=== PATIENT | female | born 1940 | race Caucasian/White ===

== ENCOUNTER → 2016-08-20 | Outpatient (CLI) | payer MEDICARE, BC ==
[~2016-08-20] MED LIST: ASPI1TAB69 PO; ASPI81 PO; CHOL1CAP6 PO; CO Q60CA PO; CO Q60CA2 PO; EZET10 PO; GABA300 PO; GLIM4 PO; GLIM4TAB PO; JANU100T PO; MAGN500T4 PO; MAXZ PO; METF1000 PO; PENT400T PO; TREN400T PO; VANC250C2 PO; VASO10TA8 PO; VITA1000 PO; ZETI10TA5 PO
[2016-08-20 12:32] LABS: HEMATOCRIT 36.4 % (35.0-46.0); MEAN CELL VOLUME 85.4 FL (80.0-100.0); MEAN CORPUSCULAR HEMOGLOBIN 27.6 PG (27.0-34.0); MEAN CORPUSCULAR HGB CONC 32.3 % (32.0-36.0); PLATELET COUNT 442 TH/MM3 (150-450); RED BLOOD COUNT 4.26 MIL/MM3 (4.00-5.30); RED CELL DISTRIBUTION WIDTH 17.7 % (11.6-17.2); REVIEW FLAG FINAL; WHITE BLOOD COUNT 19.4 TH/MM3 (4.0-11.0)
[2016-08-20 12:42] LABS: BLOOD, URINE NEG (NEG); GLUCOSE,URINE NEG (NEG); HYALINE CAST, URINE 1 /lpf (RARE); KETONE, URINE NEG (NEG); NITRITE,URINE NEG (NEG); PH, URINE 6.5 (5.0-8.5); SQUAMOUS EPITHELIAL CELL URINE 1 /hpf (0-5); URINE COLOR YELLOW (YELLW/STRAW)
[2016-08-20 12:54] LABS: ANION GAP 7 MEQ/L (5-15); AST (GOT) 27 U/L (15-37); BICARBONATE 27.8 MEQ/L (21.0-32.0); BLOOD UREA NITROGEN 37 MG/DL (7-18); CHLORIDE 103 MEQ/L (98-107); GLOMERULAR FILTRATION RATE 43 ML/MIN (>89); GLUCOSE,FASTING 116 MG/DL (74-99); POTASSIUM 4.8 MEQ/L (3.5-5.1); SODIUM (NA) 138 MEQ/L (136-145)
[2016-08-20 12:58] LABS: ALKALINE PHOSPHATASE 78 U/L (45-117); ALT (GPT) 26 U/L (10-53); TOTAL BILIRUBIN ADULT 0.4 MG/DL (0.2-1.0)
--- NOTE | 2016-08-20 13:16 | RADRPT ---
EXAM DATE/TIME: 08/20/2016 12:42 [place] COMPARISON: No previous studies available for comparison. INDICATIONS : Evaluate for pneumonia, pneumothorax and communicable diseases. Pre-op biopsy on uterus. MEDICAL HISTORY : Chronic obstructive pulmonary disease. SURGICAL HISTORY : None. ENCOUNTER: Initial ACUITY: 1 day PAIN SCORE: 0/10 LOCATION: Bilateral chest FINDINGS: PA and lateral views of the chest demonstrate the lungs to be symmetrically aerated without evidence of mass, infiltrate or effusion. The cardiomediastinal contours are unremarkable. Osseous structure s are intact. CONCLUSION: No acute disease. Johan Fung MD on August 20, 2016 at 13:14 Board Certified Radiologist. This report was verified electronically.
--- NOTE | 2016-08-21 23:40 | EKG ---
Date Performed: 08/20/2016 Time Performed: 11:54:00 PTAGE: 76 years EKG: Sinus rhythm WITH OCCASIONAL VENTRICULAR PREMATURE COMPLEXES BORDERLINE ECG NO PREVIOUS TRACING DOCTOR: Leticia Suarez Interpretating Date/Time 08/21/2016 23:38:09
== END ==
LOC: CPRE 11:29
PROVIDERS: ATTEND Obstetrics & Gynecology
DX: Z01.810 Encounter for preprocedural cardiovascular examination (principal); Z01.811 Encounter for preprocedural respiratory examination; Z01.812 Encounter for preprocedural laboratory examination; N95.0 Postmenopausal bleeding; R94.31 Abnormal electrocardiogram [ECG] [EKG]
CPT/HCPCS: 36415; 71020; 80053; 81001; 85027; 93005

== ENCOUNTER → 2016-08-26 | Day surgery (SDC) | payer MEDICARE, BC ==
[~2016-08-26] VITALS: Ht 170.2 cm; Wt 113.6 kg
[~2016-08-26] MED LIST changes: +*morphine SULFATE 8 MG/ML PERIprocedure ONLY ONE; +DICLOFENAC SODIUM 37.5 MG/ML VIAL IV PUSH ONE; +DO NOT ADM ANY ANTICOAGULANT DRUGS XX PRN; +MIDAZOLAM HCL 2 MG/2 ML VIAL ONE; +ONDANSETRON HCL 4 MG/2 ML VIAL IV PUSH ONE; +OXYTOCIN 10 UNIT/ML AMP ONE; +PROPOFOL 200 MG/20 ML AMP IV ONE; +SILVER NITR/POTASSIUM NITRATE APPLICATORS ONE; +oxyCODONE/ACETAMINOPHEN 5 MG/325 MG TAB PO PRN
[2016-08-26 11:08] VITALS: BP 174/71; PULSE 100; RESP 16; TEMP 97.8; O2SAT 97
[2016-08-26 16:30] VITALS: BP 133/67; PULSE 90; RESP 17; TEMP 97.8; O2SAT 96
--- NOTE | 2016-08-29 18:10 | MP ---
cc: Valorie BILLY MD DATE OF SURGERY: 08/26/2016. PREOPERATIVE DIAGNOSIS: Thickened endometrium on ultrasound and CT scan. POSTOPERATIVE DIAGNOSIS: 1. Thickened endometrium on ultrasound and CT scan. 2. Large endometrial polyp. 3. Small submucous myoma. OPERATIVE PROCEDURE PERFORMED: 1. Examination under anesthesia. 2. Dilation and curettage of the uterus with the MyoSure Device. 3. Polypectomy. 4. Myomectomy. SURGEON: Valorie Billy MD. ANESTHESIA: General. FINDINGS: On examination under anesthesia, the vagina was atrophic without lesions and quite tight. The cervix was small and nulliparous. The uterus and adnexa were not palpable secondary to adipose tissue. No masses were felt. The hysteroscopic exam revealed a large fundal polyp extending down to the internal cervical os. It looked totally benign. On the anterior area of the endometrium, there was a small 5 mm x 5 mm fibroid which was submucous and was removed. The uterus sounded to 8 cm. The remainder of the endocervix and the endometrium looked normal and not suspicious for any malignancy. COMPLICATIONS: None. COUNTS: Correct. ESTIMATED BLOOD LOSS: Minimal. DISPOSITION: The patient tolerated the procedure well and went to the recovery room in good condition. DESCRIPTION OF THE PROCEDURE IN DETAIL: The patient was taken to the operating room and identified by name band and verbally and given a general anesthetic and placed in the dorsal lithotomy position and prepped and draped in the usual sterile fashion for vaginal surgery. An examination under anesthesia was carried out with the above findings. A weighted speculum was placed in the vagina. The anterior lip of the cervix was grasped with single-tooth tenaculum. The cervix was serially dilated without difficulty and the hysteroscope inserted. We immediately saw this large polyp and using the MyoSure Device, we removed that in toto. We also removed the base of it. We got samples from all four quadrants of the endometrium which looked completely benign. There was a small 4 x 5 mm of myoma submucous and the MyoSure Device was placed on this and we took this down to the myometrium and removed the entire fibroid. We took some samples around the endocervix as well. At this point, everything looked good. The uterus was totally benign. There were no more polyps or other lesions and with this, we removed the hysteroscope and the instruments. She tolerated the procedure well and went to the recovery room in good condition. R. MD PASHA Crane/AMAYA /3:46 PM /6:01 PM
== END | disposition home or self-care (01) ==
LOC: HSDC 10:19
PROVIDERS: ATTEND Obstetrics & Gynecology
DX: D25.0 Submucous leiomyoma of uterus (principal); N84.0 Polyp of corpus uteri; R93.8 Abnormal findings on diagnostic imaging of other specified body structures; I10 Essential (primary) hypertension; E78.5 Hyperlipidemia, unspecified; E11.9 Type 2 diabetes mellitus without complications; J44.9 Chronic obstructive pulmonary disease, unspecified
CPT/HCPCS: 00940; 58120; 58145; 82948; 88305; J1130; J2250; J2270; J2405; J3010; J2590